=== PATIENT | female | born 1985 | race Caucasian/White ===

== ENCOUNTER 2019-03-18 09:11 | Inpatient (IN) | payer SELFPAY ==
[~2019-03-18] VITALS: Ht 167.6 cm; Wt 91.7 kg
--- NOTE | 2019-03-18 09:31 | NUR ---
Pt to rm 36 from triage
[2019-03-18] MEDS ORDERED: ONDANSETRON 2MG/ML, 2ML IVPush ONE (10:00)
[2019-03-18] MEDS ORDERED: FAMOTIDINE 20 MG/2 ML IV ONE (10:00)
[2019-03-18] MEDS ORDERED: SODIUM CHLORIDE FLUSH 10ML SYR IVF ONE (10:00)
[2019-03-18] MEDS ORDERED: MORPHINE SULFATE 4 MG/ML, 1ML IVPush PRN (10:00)
--- NOTE | 2019-03-18 10:10 | NUR ---
URINE COLLECTED/WALKED TO LAB. LABS DRAWN, PT TO XRAY.
[2019-03-18 10:20] LABS: MICROSCOPIC INDICATED
[2019-03-18 10:21] LABS: CULTURE INDICATED? YES
[2019-03-18 10:29] LABS: ALBUMIN 3.6 g/dL (3.4-5.0); ANION GAP 14 mmol/L (5-15); CALCIUM 8.6 mg/dL (8.5-10.1); CHLORIDE 104 mmol/L (98-107)
[2019-03-18] MEDS ORDERED: SODIUM CHLORIDE 0.9% 1,000ML IVBOLUS ONE ×2 (10:30→11:00)
[2019-03-18 10:35] LABS: ALANINE AMINOTRANSFERASE 134 U/L (12-78); ALKALINE PHOSPHATASE 131 U/L (45-117); BILIRUBIN,TOTAL 1.1 mg/dL (0.2-1.0); CREATININE 0.83 mg/dL (0.55-1.02); TOTAL PROTEIN 7.4 g/dL (6.4-8.2)
[2019-03-18] MEDS ORDERED: ONDANSETRON 2MG/ML, 2ML ONE ×2 (10:37→13:17)
[2019-03-18 10:38] LABS: MEAN CORPUSCULAR HEMOGLOBIN 36.7 pg (27.0-34.8); MEAN CORPUSCULAR HGB CONC 32.9 g/dL (32.4-35.8); MEAN CORPUSCULAR VOLUME 111.7 fL (80-100); MEAN PLATELET VOLUME 8.4 fL (7.4-10.4); PLATELET COUNT 221 x10^3/uL (130-400); RED BLOOD COUNT 4.26 x10^6/uL (3.82-5.3); RED CELL DISTRIBUTION WIDTH 17.2 % (9.6-15.2)
[2019-03-18] MEDS ORDERED: FAMOTIDINE 20 MG/2 ML ONE (10:41)
--- NOTE | 2019-03-18 10:45 | NUR ---
IV PLACED, NS BOLUS INFUSING. MEDS GIVEN PER ERP ORDER, PT DECLINING MORPHINE AT THIS TIME, STATES PAIN IS 3/10. VSS, CALL LIGHT WITHIN REACH.
[2019-03-18 11:30] LABS: BAND#(MANUAL) 0.77 x10^3/uL; BANDS%(MANUAL) 8 % (0-7); EOS% (MANUAL) 1 % (1-7); LYMPH#(MANUAL) 1.25 x10^3/uL (1-3.4); LYMPHS% (MANUAL) 13 % (22-44); MD YES; METAMYELOCYTES% (MANUAL) 1 % (0-1); MONOS#(MANUAL) 0.38 x10^3/uL (0.3-2.7); MONOS% (MANUAL) 4 % (2-9); SEG#(MANUAL) 7.01 x10^3/uL (1.8-6.8); SEGS% (MANUAL) 73 % (42-75)
[2019-03-18 11:31] LABS: <PLATELET ESTIMATE> ADEQUATE; <PLT MORPHOLOGY> NORMAL PLT MORPH
[2019-03-18] MEDS ORDERED: OMNIPAQUE 350 MG/ML, 100ML BOTTLE ONE (11:38)
[2019-03-18] MEDS ORDERED: KETOROLAC 30 MG/1 ML IM PRN (13:00)
[2019-03-18] MEDS ORDERED: POLYETHYLENE GLYCOL 17 GM PACKET PO PRN (13:00)
[2019-03-18] MEDS ORDERED: BISACODYL 10 MG SUPP PR PRN (13:00)
[2019-03-18] MEDS ORDERED: DOCUSATE 100 MG CAPSULE PO PRN (13:00)
[2019-03-18] MEDS ORDERED: KETOROLAC 30 MG/1 ML ONE (13:17)
[2019-03-18] MEDS ORDERED: POTASSIUM CHLORIDE 20 MEQ TAB.ER.PRT ONE (13:17)
[2019-03-18] MEDS ORDERED: MORPHINE SULFATE 4 MG/ML, 1ML ONE (13:17)
[2019-03-18] MEDS: ONDANSETRON 2MG/ML, 2ML IVPush PRN ×2 (13:23→20:36)
[2019-03-18] MEDS: SODIUM CHLORIDE 0.9% 1,000 ML IV SCH ×3 (13:23→23:46)
[2019-03-18] MEDS ORDERED: POTASSIUM CHLORIDE 20 MEQ TAB.ER.PRT PO ONE (13:30)
[2019-03-18 13:33] LABS: INTERNATIONAL NORMALIZED RATIO 1.12 (0.93-1.1); PROTHROMBIN TIME 11.7 Seconds (9.6-11.5)
--- NOTE | 2019-03-18 13:42 | NUR ---
MEDS GIVEN PER [facility] ORDER, NS INFUSING AT 175CC/HR. PRN MEDS GIVEN FOR NAUSEA AND PAIN. VSS/UPDATED IN COMPUTER. CALL LIGHT WITHIN REACH. PT UPDATED ON POC AND OFFERED HOSPITAL BED WHILE ON HOLD IN ED WHICH PT DECLINED AT THIS TIME.
--- NOTE | 2019-03-18 15:03 | NUR ---
PT RESTING, SLEEPING INTERMITTENTLY. CALL LIGHT WITHIN REACH.
[2019-03-18] MEDS: morphine SULFATE 10 MG/ML, 1ML IVPush PRN ×3 (17:14→23:39)
[2019-03-18 20:50] VITALS: BP 122/84
[2019-03-19] MEDS: ONDANSETRON 2MG/ML, 2ML IVPush PRN ×4 (02:48→22:34)
[2019-03-19] MEDS: morphine SULFATE 10 MG/ML, 1ML IVPush PRN ×6 (02:48→19:56)
[2019-03-19 03:55] VITALS: BP 130/96
[2019-03-19 06:23] LABS: CHLORIDE 108 mmol/L (98-107)
[2019-03-19 06:38] LABS: ALANINE AMINOTRANSFERASE 79 U/L (12-78); ALKALINE PHOSPHATASE 103 U/L (45-117); ANION GAP 10 mmol/L (5-15); BILIRUBIN,TOTAL 1.6 mg/dL (0.2-1.0); CALCIUM 8.6 mg/dL (8.5-10.1); CREATININE 0.56 mg/dL (0.55-1.02)
[2019-03-19 06:57] LABS: BASOPHILS # (AUTO) 0.01 x10^3/uL (0-0.1); BASOPHILS % (AUTO) 0 % (0-1); EOSINOPHILS # (AUTO) 0.04 x10^3/uL (0-0.4); EOSINOPHILS % (AUTO) 1 % (1-7); LYMPHOCYTES # (AUTO) 0.76 x10^3/uL (1-3.4); LYMPHOCYTES % (AUTO) 8 % (22-44); MD SCAN; MEAN CORPUSCULAR HEMOGLOBIN 37.4 pg (27.0-34.8); MEAN CORPUSCULAR HGB CONC 32.9 g/dL (32.4-35.8); MEAN CORPUSCULAR VOLUME 113.4 fL (80-100); MEAN PLATELET VOLUME 9.1 fL (7.4-10.4); MONOCYTES # (AUTO) 0.44 x10^3/uL (0.2-0.8); MONOCYTES % (AUTO) 5 % (2-9); NEUTROPHILS # (AUTO) 8.12 x10^3/uL (1.8-6.8); NEUTROPHILS % (AUTO) 87 % (42-75); PLATELET COUNT 170 x10^3/uL (130-400); RED BLOOD COUNT 3.88 x10^6/uL (3.82-5.3)
[2019-03-19] MEDS ORDERED: MAGNESIUM SULFATE PMX 2GM/50ML 50 ML IV ONE (08:30)
[2019-03-19] MEDS: THIAMINE 100MG TABLET PO SCH (09:00)
[2019-03-19] MEDS: FOLIC ACID 1 MG TABLET PO SCH (09:00)
[2019-03-19 09:11] VITALS: BP 120/85
[2019-03-19] MEDS: SODIUM CHLORIDE 0.9% 1,000 ML IV SCH ×2 (13:05→22:34)
[2019-03-19 14:53] VITALS: BP 119/89
[2019-03-19] MEDS ORDERED: FOLIC ACID 1 MG in DEXTROSE 5% 50 ML IV ONE (15:30)
[2019-03-19] MEDS ORDERED: THIAMINE 100 MG in SODIUM CHLORIDE 0.9% 50 ML IV ONE (15:30)
[2019-03-19] MEDS ORDERED: LORazepam 2 MG/ML, 1ML IVPush PRN (18:00)
[2019-03-19 19:40] VITALS: BP 131/87
[2019-03-20] MEDS: morphine SULFATE 10 MG/ML, 1ML IVPush PRN ×5 (00:09→20:25)
[2019-03-20 03:56] VITALS: BP 107/74
[2019-03-20] MEDS: SODIUM CHLORIDE 0.9% 1,000 ML IV SCH ×3 (05:23→20:24)
[2019-03-20 05:29] LABS: ALANINE AMINOTRANSFERASE 52 U/L (12-78); ALBUMIN 2.3 g/dL (3.4-5.0); ANION GAP 6 mmol/L (5-15); CALCIUM 7.8 mg/dL (8.5-10.1); CHLORIDE 108 mmol/L (98-107)
[2019-03-20 05:32] LABS: ALKALINE PHOSPHATASE 85 U/L (45-117); BILIRUBIN,TOTAL 1.2 mg/dL (0.2-1.0); TOTAL PROTEIN 5.4 g/dL (6.4-8.2)
[2019-03-20 05:50] LABS: MEAN CORPUSCULAR HEMOGLOBIN 37.4 pg (27.0-34.8); MEAN CORPUSCULAR HGB CONC 33.1 g/dL (32.4-35.8); MEAN PLATELET VOLUME 8.8 fL (7.4-10.4); PLATELET COUNT 126 x10^3/uL (130-400); RED BLOOD COUNT 3.32 x10^6/uL (3.82-5.3); RED CELL DISTRIBUTION WIDTH 17.3 % (9.6-15.2)
[2019-03-20 06:28] LABS: BASOPHILS # (AUTO) 0.01 x10^3/uL (0-0.1); BASOPHILS % (AUTO) 0 % (0-1); EOSINOPHILS # (AUTO) 0.19 x10^3/uL (0-0.4); EOSINOPHILS % (AUTO) 3 % (1-7); LYMPHOCYTES # (AUTO) 0.98 x10^3/uL (1-3.4); LYMPHOCYTES % (AUTO) 17 % (22-44); MD SCAN; MONOCYTES # (AUTO) 0.31 x10^3/uL (0.2-0.8); MONOCYTES % (AUTO) 5 % (2-9); NEUTROPHILS # (AUTO) 4.25 x10^3/uL (1.8-6.8); NEUTROPHILS % (AUTO) 74 % (42-75)
[2019-03-20] MEDS: FOLIC ACID 1 MG TABLET PO SCH (07:31)
[2019-03-20] MEDS: THIAMINE 100MG TABLET PO SCH (07:31)
[2019-03-20] MEDS: ONDANSETRON 2MG/ML, 2ML IVPush PRN ×2 (08:46→17:15)
[2019-03-20 13:27] VITALS: BP 116/81
[2019-03-20 19:50] VITALS: BP 132/91
[2019-03-21 01:36] VITALS: BP 118/80
[2019-03-21] MEDS: morphine SULFATE 10 MG/ML, 1ML IVPush PRN ×6 (02:44→22:46)
[2019-03-21] MEDS: SODIUM CHLORIDE 0.9% 1,000 ML IV SCH ×4 (03:30→22:47)
[2019-03-21 07:48] VITALS: BP 124/85
[2019-03-21] MEDS: THIAMINE 100MG TABLET PO SCH (09:25)
[2019-03-21] MEDS: FOLIC ACID 1 MG TABLET PO SCH (09:25)
[2019-03-21] MEDS: ONDANSETRON 2MG/ML, 2ML IVPush PRN ×2 (09:25→19:39)
[2019-03-21 14:02] VITALS: BP 124/78
[2019-03-21 19:33] VITALS: BP 133/89
[2019-03-22 00:16] VITALS: BP 118/82
[2019-03-22] MEDS: morphine SULFATE 10 MG/ML, 1ML IVPush PRN ×4 (05:43→17:59)
[2019-03-22] MEDS: SODIUM CHLORIDE 0.9% 1,000 ML IV SCH ×3 (05:43→17:59)
[2019-03-22 08:00] VITALS: BP 142/78
[2019-03-22] MEDS: ONDANSETRON 2MG/ML, 2ML IVPush PRN ×2 (08:24→17:57)
[2019-03-22] MEDS: THIAMINE 100MG TABLET PO SCH (08:24)
[2019-03-22] MEDS: FOLIC ACID 1 MG TABLET PO SCH (08:24)
[2019-03-22 14:01] VITALS: BP 142/95
[2019-03-22 18:52] VITALS: BP 134/90
[2019-03-23] MEDS: SODIUM CHLORIDE 0.9% 1,000 ML IV SCH (00:22)
[2019-03-23 01:15] VITALS: BP 128/87
[2019-03-23] MEDS ORDERED: HYDR-826 PO (07:29)
[2019-03-23 07:49] VITALS: BP 134/89
[2019-03-23] MEDS: THIAMINE 100MG TABLET PO SCH (08:21)
[2019-03-23] MEDS: FOLIC ACID 1 MG TABLET PO SCH (08:21)
== END 2019-03-23 12:00 | disposition home or self-care (01) | DRG 439 ==
LOC: ED 11:06 → EDIP 12:44 → 3N 16:55 → DCLOUNGE 03-23 11:54
PROVIDERS: ADMIT Internal Medicine; ATTEND Family Medicine
DX: K85.20 Alcohol induced acute pancreatitis without necrosis or infection (principal); F10.239 Alcohol dependence with withdrawal, unspecified; D75.89 Other specified diseases of blood and blood-forming organs; E87.6 Hypokalemia; F12.90 Cannabis use, unspecified, uncomplicated; K70.10 Alcoholic hepatitis without ascites; K70.30 Alcoholic cirrhosis of liver without ascites; K76.0 Fatty (change of) liver, not elsewhere classified; M41.9 Scoliosis, unspecified
CPT/HCPCS: 36415; 74021; 99285; J3490; 71046; 74177; 80053; 81001; 82607; 83690; 83735; 84100; 84703; 85025; 85610; 87086; 93005; G0378; J2405; J3411; Q9967; J2270; J3475; J7030; Q0177